=== PATIENT | male | born 1980 | race Two or more races ===

== ENCOUNTER 2022-02-02 18:11 | Emergency (ER) | payer MEDICAID, OTHER | END 2022-02-02 19:05 | disposition left against medical advice (07) | LOC: ER 18:11 | DX: K92.2 Gastrointestinal hemorrhage, unspecified (principal); Z53.21 Procedure and treatment not carried out due to patient leaving prior to being seen by health care provider ==

== ENCOUNTER 2022-07-09 16:41 | Emergency (ER) | payer OTHER ==
[~2022-07-09] VITALS: Ht 182.9 cm; Wt 115.1 kg
[2022-07-09 17:15] LABS: Red Cell Distribution Width 14.2 % (11.8-14.3)
[2022-07-09 17:20] LABS: Basophils # (auto) 0.1 10 ^3/uL (0-0.2); Basophils % (auto) 0.7 % (0.0-2.0); Eosinophils # (auto) 0.1 10 ^3/uL (0-0.8); Eosinophils % (auto) 0.5 % (0.0-7.0); Hematocrit 55.3 % (41.0-53.0); Lymphocytes % (auto) 7.6 % (10.0-50.0); Mean Corpuscular Hemoglobin 30.4 pg (28.0-32.0); Mean Corpuscular Hgb Conc. 34.4 g/dL (32.0-36.0); Mean Corpuscular Volume 88.4 fL (80.0-100.0); Monocytes # (auto) 1.5 10 ^3/uL (0-1.3); Monocytes % (auto) 11.5 % (0.0-12.0); Neutrophils # (auto) 10.2 10 ^3/uL (1.6-8.6); Neutrophils % (auto) 79.7 % (37.0-80.0); Nucleated Red Blood Cells % 0.5 %; Red Blood Cells 6.25 10^6/uL (4.5-5.90); White Blood Cell 12.8 10^3/uL (4.4-10.8)
[2022-07-09 18:32] LABS: Alanine Aminotransferase 17 U/L (16-61); Alkaline Phosphatase 188 U/L (45-117); Anion Gap 9 (5-15); Aspartate Aminotransferase 46 U/L (15-37); BUN/Creatinine Ratio 15.1; Bilirubin, Total 2.2 mg/dL (0.2-1.0); Blood Urea Nitrogen 18 mg/dL (7-18); Calcium 8.5 mg/dL (8.5-10.1); Carbon Dioxide 24 mmol/L (21-32); Chloride 106 mmol/L (98-107); GFR African American 87 mL/min; GFR Non-African American 72 mL/min; Glucose 101 mg/dL (74-106); Potassium 4.2 mmol/L (3.5-5.1); Sodium 139 mmol/L (136-145); Total Protein 5.5 g/dL (6.4-8.2)
[2022-07-09 18:33] LABS: Albumin 2.7 g/dL (3.4-5.0); Magnesium 2.1 mg/dL (1.6-2.6)
[2022-07-09] MEDS ORDERED: NITROGLYCERIN 0.4 MG SL TAB SL ONE (18:45)
[2022-07-09] MEDS ORDERED: FUROSEMIDE 40 MG/4 ML VIAL IV ONE (22:15)
[2022-07-09 23:28] LABS: Urine Bacteria NONE SEEN /hpf (None Seen); Urine Blood Negative /uL (Negative); Urine Mucus FEW (None Seen); Urine Specific Gravity 1.014 (1.001-1.035); Urine WBC 1 /hpf (0 - 3)
[2022-07-09 23:40] LABS: Alcohol, Urine < 3.0 mg/dL (0-10); Amphetamine Screen, Urine POSITIVE (NEGATIVE); Barbiturate Scree,Urine NEGATIVE (NEGATIVE); Benzodiazephine Screen, Urine NEGATIVE (NEGATIVE); Cannabinoid Screen, Urine POSITIVE (NEGATIVE); Cocaine Screen, Urine NEGATIVE (NEGATIVE); Opiate Scree,Urine NEGATIVE (NEGATIVE); Phencyclidine Screen, Urine NEGATIVE (NEGATIVE)
[2022-07-10] VITALS: BP 142/91
[2022-07-10] MEDS ORDERED: TIOTCAP IN (00:57)
[2022-07-10] MEDS ORDERED: AZIT4SOL EACHEYE (00:57)
[2022-07-10] MEDS ORDERED: FURO1TAB33 PO (00:57)
[2022-07-10] MEDS ORDERED: NITROGLYCERIN 0.4 MG SL TAB SL ONE (10:00)
== END 2022-07-10 02:02 | disposition home or self-care (01) ==
LOC: ER 16:41
DX: R07.89 Other chest pain (principal); F15.10 Other stimulant abuse, uncomplicated; I73.9 Peripheral vascular disease, unspecified; R60.9 Edema, unspecified; H10.33 Unspecified acute conjunctivitis, bilateral; Z20.822 Contact with and (suspected) exposure to COVID-19; Z79.899 Other long term (current) drug therapy
CPT/HCPCS: 36415; 71045; 80053; 80307; 81001; 83735; 83880; 84484; 85025; 87426; 87804; 93005; 96374; 99285; J1940